=== PATIENT | female | born 1960 | race Caucasian/White ===

== ENCOUNTER 2024-08-29 14:06 | Emergency (ER) | payer OTHER ==
[~2024-08-29] VITALS: Ht 157.5 cm; Wt 57.0 kg
[2024-08-29 14:12] VITALS: BP 148/78; PULSE 76; RESP 16; TEMP 36.9; O2SAT 99
[2024-08-29] MEDS: LIDOCAINE 5% PATCH TOP SCH (15:38)
== END 2024-08-29 16:08 | disposition home or self-care (01) ==
LOC: ER 14:06
DX: M54.9 Dorsalgia, unspecified (principal); V49.9XXA Car occupant (driver) (passenger) injured in unspecified traffic accident, initial encounter; Y93.89 Activity, other specified; Y92.410 Unspecified street and highway as the place of occurrence of the external cause; Y99.8 Other external cause status
CPT/HCPCS: 99283